=== PATIENT | female | born 1985 | race Two or more races ===

== ENCOUNTER 2020-05-02 07:00 | Inpatient (IN) | payer OTHER ==
[~2020-05-02] VITALS: Ht 144.8 cm; Wt 62.6 kg
--- NOTE | 2020-05-08 12:13 | NUR ---
[facility] translation services used to obtained medical history with project engineering director Thang ID #[id number].
[2020-05-09] VITALS (15 sets, daily range): BP systolic 105–137; BP diastolic 41–88
[2020-05-09] MEDS ORDERED: Vancomycin 1gm vial IVPB ONE (06:33)
[2020-05-09] MEDS ORDERED: Ropivacaine 5mg/ml Vial 30ml INJ ONE ×2 (06:34→06:35)
[2020-05-09] MEDS ORDERED: Thrombin 5000 units TOPIC ONE (06:34)
[2020-05-09] MEDS ORDERED: Gelfoam Size TOPIC ONE (06:34)
[2020-05-09] MEDS ORDERED: Bacitracin 50000 Units Vial ONE (06:35)
--- NOTE | 2020-05-09 06:42 | Anethesia Preoperative Eval ---
Anesthesia Pre-op PMH/ROS General Date of Evaluation: May 09, 2020 Time of Evaluation: 07:01 Anesthesiologist: Meaghan ASA Score: ASA 2 Mallampati Score Class I : Soft palate, uvula, fauces, pillars visible Class II: Soft palate, uvula, fauces visible Class III: Soft palate, base of uvula visible Class IV: Only hard plate visible Mallampati Classification: Class II Surgeon: Scotty Diagnosis: Back Pain Surgical Procedure: L5-S1 Microdiscectomy Family History: no anesthesia problems Allergies: Coded Allergies: Tuna (Verified Allergy, Intermediate, tongue gets swollen, 05/09/20) Medications: see eMAR Patient NPO?: Yes Past Medical History Other: obesity - BMI 32 Anesthesia Pre-op Phys. Exam Physician Exam Last Vital Signs Date Time Temp Pulse Resp B/P (MAP) Pulse Ox O2 Delivery O2 Flow Rate FiO2 05/09/20 06:08 97.4 72 18 128/79 (95) 99 Constitutional: NAD Neurologic: CN 2-12 intact Cardiovascular: RRR Respiratory: CTA Gastrointestinal: S/NT/ND Airway Exam Mallampati Score: Class II MO: limited ROM: full Teeth: intact Anesthesia Pre-op A/P Labs Urine Test Test 05/09/20 05:45 Urine HCG, Qualitative Negative (NEGATIVE) Risk Assessment & Plan Assessment: ASA 2 Plan: GA, SED, GlideScope Status Change Before Surgery: No Pre-Antibiotics Dru Grams Ancef IV Given Within 1 Hr of Incision: Yes Time Given: 07:21 Krishna Harding MD May 09, 2020 06:42
[2020-05-09] MEDS ORDERED: LORazepam Inj 2mg/ml 1ml IV PRN (06:45)
[2020-05-09] MEDS ORDERED: HYDROcodone/Acetamin 5/325 tab ORAL PRN ×2 (06:45→07:30)
[2020-05-09] MEDS ORDERED: HYDROcodone/Acetamin 7.5/325 tab ORAL PRN ×3 (06:45→07:30)
[2020-05-09] MEDS ORDERED: Ketorolac 30mg Inj IV PRN ×2 (06:45)
[2020-05-09] MEDS ORDERED: Labetalol 5mg/ml 20ml vial IV PRN (06:45)
[2020-05-09] MEDS ORDERED: Hydromorphone 0.5mg/0.5ml inj IVP PRN (06:45)
[2020-05-09] MEDS ORDERED: Atropine Sulfate 0.4mg/ml inj IVP PRN (06:45)
[2020-05-09] MEDS ORDERED: Meperidine 25mg/1ml Inj (FOR RIGORS ONLY) IV PRN (06:45)
[2020-05-09] MEDS ORDERED: LR 1000ml 1,000 ML IVLG SCH (06:45)
[2020-05-09] MEDS ORDERED: DiphenhydrAMINE 50mg/ml Inj IVP PRN (06:45)
[2020-05-09] MEDS ORDERED: Acetaminophen (Non formulary) 100 ML IV ONE (06:45)
[2020-05-09] MEDS ORDERED: Midazolam 2mg/2ml Inj IVP PRN (06:45)
[2020-05-09] MEDS ORDERED: fentaNYL 100 mcg/2 mL IV PRN (06:45)
[2020-05-09] MEDS ORDERED: oxyCODONE HCL/Acetaminophen 5/325mg ORAL PRN (06:45)
[2020-05-09] MEDS ORDERED: Metoclopramide 10mg/2ml Inj IVP PRN ×2 (06:45→07:30)
[2020-05-09] MEDS ORDERED: Lidocaine 1% MPF 10mg/ml 5ml ONE (06:54)
[2020-05-09] MEDS ORDERED: Lidocaine 1% Plain 30 ml INJ ONE (06:54)
[2020-05-09] MEDS ORDERED: Sodium Chloride 10ml vial INJ ONE (06:54)
[2020-05-09] MEDS ORDERED: ceFAZolin sod 2 GM in NS 55 ML IVPB ONE (07:00)
--- NOTE | 2020-05-09 07:17 | Pre-Procedure Note/Attestation ---
Pre-Procedure Note/Attestation Complete Prior to Procedure Planned Procedure: not applicable Procedure Narrative: Lumbar hemilaminotomy and foraminotomy of L5S1 with left sided microdiscectomy Indications for Procedure Pre-Operative Diagnosis: herniation L5S1 Attestation I attest that I discussed the nature of the procedure; its benefits; risks and complications; and alternatives (and the risks and benefits of such alternatives), prior to the procedure, with the patient (or the patient's legal claims representative). I attest that, if there was a reasonable possibility of needing a blood transfusion, the patient (or the patient's legal claims representative) was given the [facility] standardized written summary, pursuant to the Andrew Leyner Blood Safety Act ([place] Health and Safety Code # 1645, as amended). I attest that I re-evaluated the patient just prior to the surgery and that there has been no change in the patient's H&P, except as documented below: Manuel Fajardo MD May 09, 2020 07:17
--- NOTE | 2020-05-09 07:18 | Brief Operative Note ---
Immediate Post Operative Note Operative Note Chief Complaint: low back pain and radiculopathy Pre-op Diagnosis: herniation L5S1 Procedure: Lumbar hemilaminotomy and foraminotomy of L5S1 with left sided microdiscectomy Post-op Diagnosis: same as pre-op Findings: consistent w/pre-op dx studies Surgeon: Scotty Floor Associate: Magaly Anesthesiologist: Meaghan Anesthesia: general Specimen: none Complications: none Condition: stable Fluids: IVF Estimated Blood Loss: minimal Drains: none Implant(s) used?: No Manuel Fajardo MD May 09, 2020 07:18
[2020-05-09] MEDS ORDERED: HYDROmorphone 1mg/ml Carpuject IVP PRN (07:30)
[2020-05-09] MEDS ORDERED: Milk of Magnesia 30ml Ud ORAL PRN (07:30)
[2020-05-09] MEDS ORDERED: Morphine Sulfate 2mg/ml Inj(IV/IM USE ONLY) IV PRN (07:30)
[2020-05-09] MEDS ORDERED: Naloxone 0.4mg/ml Inj IVP PRN (07:30)
[2020-05-09] MEDS ORDERED: Chloraseptic Spray 20mL Bottle ORAL PRN (07:30)
[2020-05-09] MEDS ORDERED: Morphine Sulfate 4mg/ml Inj (IV USE ONLY) IV PRN ×2 (07:30)
--- NOTE | 2020-05-09 07:52 | Immediate Post-Op Evaluation ---
Immediate Post-Op Evalulation Immediate Post-Op Evalulation Procedure: L5-S1 Microdiscectomy Date of Evaluation: May 09, 2020 Time of Evaluation: 09:17 IV Fluids: 800 LR Blood Products: 0 Estimated Blood Loss: 30 Urinary Output: 0 Blood Pressure Systolic: 126 Blood Pressure Diastolic: 80 Pulse Rate: 73 Respiratory Rate: 16 O2 Sat by Pulse Oximetry: 100 Temperature (Fahrenheit): 97 Pain Score (1-10): 2 Nausea: No Vomiting: No Complications 0 Hydration Status: adequate Dru Grams Anef IV Given Within 1 Hr of Incision: Yes Time Given: 07:21 Krishna Harding MD May 09, 2020 07:52
--- NOTE | 2020-05-09 07:54 | 48 Hour Post Anesthesia Eval ---
Post Anesthesia Evaluation Procedure: L5-S1 Microdiscectomy Date of Evaluation: May 09, 2020 Time of Evaluation: 11:23 Blood Pressure Systolic: 124 0: 62 Pulse Rate: 73 Respiratory Rate: 18 Temperature (Fahrenheit): 98 O2 Sat by Pulse Oximetry: 100 Airway: patent Nausea: No Vomiting: No Pain Intensity: 2 Hydration Status: adequate Cardiopulmonary Status: Stable Mental Status/LOC: patient returned to baseline Follow-up Care/Observations: 0 Post-Anesthesia Complications: 0 Follow-up care needed: N/A Krishna Harding MD May 09, 2020 07:54
[2020-05-09] MEDS ORDERED: Neostigmine 1mg/ml 10ml Inj ONE (08:38)
[2020-05-09] MEDS ORDERED: Glycopyrrolate 0.2mg/ml 1ml Vial ONE (08:38)
[2020-05-09] MEDS ORDERED: Docusate 100mg cap ORAL SCH (09:00)
[2020-05-09] MEDS: Docusate Sod/Senna tab ORAL SCH ×2 (09:00→18:02)
--- NOTE | 2020-05-09 10:30 | NUR ---
NURSE NOTES: Pt came up to unit via hospital bed in stable condition and w/no personal belongings. Pt A&Ox4; VSS; on 2L NC; and c/o 5/10 pain but would not like pain medication at this time. IV site intact/asymptomatic and surgical dressing is C/D/I. Pt denies taking medication at home; will continue to monitor.
--- NOTE | 2020-05-09 10:52 | NUR ---
CASE MANAGEMENT:REVIEW 34 YR OLD FEMALE HERE FOR ELECTIVE SURGERY SI: LOW BACK PAIN AND RADICULOPATHY HERNIATION L5 S1 97.4 72 18 128/79 99% ON RA IS: TO SURGERY: LUMBAR HEMILAMINOTOMY,FORAMINOTOMY,MICRODISCECTOMY IV ANCEF Q8HRS IV DECADRON Q6HRS IVF+KCL@100/HR IV MORPHINE Q4HRS PRN PAIN : TO MED/SURG UNIT [facility]
--- NOTE | 2020-05-09 11:15 | NUR ---
NURSE NOTES: Helped pt ambulate to the bathroom to void; pt voided successfully and returned to bed w/o incident. Bed locked, in lowest position, and call light within reach. Will continue to monitor.
[2020-05-09] MEDS: NS w/KCl 20mEq 1000ml 1,000 ML IV SCH ×2 (11:55→23:34)
--- NOTE | 2020-05-09 16:30 | Operative Note - Dictated ---
DATE OF OPERATION: 05/09/2020 SURGEON: Manuel Fajardo MD, Orthopaedic Spine Surgeon. CHANNEL EXECUTIVE: LUNA Samson. ANESTHESIA: General endotracheal anesthesia. PREOPERATIVE DIAGNOSES: 1. Intractable back pain. 2. Intractable leg pain. 3. Worsening radiculopathy. 4. Weakness. 5. Herniated nucleus pulposus, L5-S1 herniation. 6. Neural foraminal stenosis, L5-S1. POSTOPERATIVE DIAGNOSES: 1. Intractable back pain. 2. Intractable leg pain. 3. Worsening radiculopathy. 4. Weakness. 5. Herniated nucleus pulposus, L5-S1 herniation. 6. Neural foraminal stenosis, L5-S1. PROCEDURES PERFORMED: 1. Left-sided L5-S1 microdiscectomy. 2. L5-S1 bilateral hemilaminotomy, foraminotomy, and medial facetectomy. 3. L5-S1 neural foraminotomy through a transpedicular intraforaminal approach. 4. Use of intraoperative microscope. 5. Supervision and interpretation of intraoperative fluoroscopy. 6. Supervision and interpretation of somatosensory-evoked potential and free running EMG monitoring. ESTIMATED BLOOD LOSS: Less than 100 mL. COMPLICATIONS: None. INDICATIONS FOR THE PROCEDURE: The patient presents for intractable back pain and radiculopathy. The patient tried and failed a prolonged course of conservative management, including but not limited to chiropractic therapy, physical therapy, nonsteroidal anti-inflammatory drugs, medication, ice packs as well as epidural injection. Despite these therapies, the patient still developed recalcitrant pain and elected for definitive management in the form of left-sided L5-S1 microdiscectomy; L5-S1 bilateral hemilaminotomy, foraminotomy, and medial facetectomy; and L5-S1 neural foraminotomy through a transpedicular intraforaminal approach. CONSENT: We had a long discussion with the patient regarding definitive surgical treatment options. The patient's MRI demonstrated herniated nucleus pulposus, L5-S1 herniation and neural foraminal stenosis at L5-S1, and as a result, I felt the patient would benefit from the discectomy as well as neural foraminotomy at this level. We had a long discussion with the patient regarding the risks, alternatives, and benefits of surgery. Our description of the risks included a discussion in person as well as a signed consent, which detailed all pertinent risks and the procedure itself. Briefly, our discussion included but was not limited to infection, bleeding, pseudarthrosis, spinal cord injury, neurovascular injury, dural tear, CSF leak, neuropathy, paralysis, permanent weakness/drop foot, paresthesias, blindness, palsy, and weakness. The patient understood there may be a need for revision surgery or additional procedures. Approach-related complications including dysphonia, dysphagia, blindness, permanent vocal cord and neural injury, hematoma, swallowing and breathing difficulty. Medical complications including liver, kidney, shock, and cardiopulmonary failure. Anesthesia complications including , swelling, damage to the musculature, larynx (voice injury or loss),esophagus (throat), trachea, blood vessels and muscles (muscular sprain) and lungs (pneumothorax) during this surgical procedure. Injury to deeper structures may be temporary or permanent. The patient understood these and elected to proceed. A written and verbal consent was given. We discussed the pros and cons of all the alternatives. We discussed the uncertainties associated with the decision. Afterwards, I assessed the patient's understanding and explored their preferences. All questions were answered and no guarantees were given. Medical clearance was obtained prior to surgery. INTRAOPERATIVE FINDINGS: At L5-S1, there was a very large disc herniation apparently with encroachment on the neural foramina on the left side. When probed, this led to a discrete tear in the posterior longitudinal ligament, which was approximately 10 degrees cephalad to caudad. This was probed with a Microsect 1-B curette, which led to discovery of fresh, clean edges along the tear, we made to believe this was more acute in nature. After this was probed, I was able to gently maneuver the remainder of the disc herniation from its confines using a 1 mm and 1.5 mm pituitaries. This allowed for complete dissection under microscope. The disc I should note was soft and spongy; it was not calcified, dried, dehydrated, or desiccated leading me to believe this is more traumatic in nature and not a degenerative process. DESCRIPTION OF PROCEDURE: Under the benefit of general endotracheal anesthesia and with the assistance of the entire operative team, the patient was moved from the rscammon bay onto the operative table in the prone position on a Robert frame. The head was secured and positioned appropriately. Bilateral arms were secured with Gel Pads and foam, and all bony prominences were padded. The bilateral lower extremity SCD and CARLITA hose were placed for DVT prophylaxis. A surgical timeout was called, which corroborated our planned procedure. Preoperative antibiotics were administered within 30 minutes of the incision for prophylaxis. Decadron was given for preoperative steroids. Using lateral radiography, the operative levels were delineated. An incision was marked based on our interpretation of lateral radiography and afterwards the body was prepped and draped in the usual sterile manner. The family was notified that we were ready to commence surgery and were called in the waiting room hourly for updates. An incision was based on our lateral fluoroscopic image to center the incision at the L5-S1 interspace. The wound was prepped and draped in the usual sterile fashion. Using a scalpel, a midline incision was taken down through the skin and subcutaneous tissues until the overlying hemilaminae of L5-S1 were visualized. Next, using meticulous hemostasis, hemilamotomies were dissected and retractors were placed. Using a [employer] dental, we confirmed placement at the L5-S1 interspace. We next turned our attention to our decompression. A standard hemilaminotomy, foraminotomy, and medial facetectomy was performed at each level in standard fashion using a Midas-Andrew type AM8 drill bit, straight and angled curettage, and [place] 4 rongeurs until the lateral thecal sac margin and traversing nerve root was visualized. All remainders of the ligamentum flavum and lateral bony margins were resected in total with angled curettage and [place] 4 rongeurs until the lateral thecal sac margin and traversing nerve root was visualized and decompressed. We next turned our attention toward our L5-S1 microdiscectomy on the left side. A [place] 4 was used to gently mobilize the thecal sac medially and this was held retracted with a bayonetted nerve root retractor. It was at this point that we noted a large broad-based disc protrusion with encroachment dorsally on the thecal sac and neural foraminal contents. A bayonet and nerve root retractor was then placed carefully to retract the thecal sac and a discectomy was performed using a combination of a long-handled 15 blade scalpel, downgoing and straight pituitaries, and downgoing curettage. Afterward, the disc space was irrigated twice with 20 mL of antibiotic-impregnated saline. All loose and free-floating disc fragments were carefully resected with a narrow pituitary. Having been satisfied with our decompression after our discectomy of all neural elements, we next turned our attention to our neural foraminoplasty/foraminotomy. This was performed through a transpedicular intraforaminal approach using an access probe followed by a neuro-check device, which confirmed ventral placement of our nerve root. Once we confirmed we were safe, we next turned our attention towards placement of our size 10 file under direct microscopic visualization and under lateral fluoroscopy. Using pre- and post-reciprocation imaging, we were able to visualize our direct decompression given the reciprocation allowed for re-creation of the neural foraminal arch at L5-S1. Afterward, hemostasis was obtained with 60 mL of antibiotic-impregnated saline followed by FloSeal and Gelfoam. After sponge and needle count were found to be correct, we next turned our attention to closure. Closure consisted of 1-0 Vicryl in standard interrupted fashion. Zosyn was placed deep to the fascia and superficial to the fascia for antibiotic prophylaxis. Skin closure was performed with 2-0 Vicryl in interrupted fashion followed by running Monocryl for the skin. Final dressings consisted of Dermabond for the superficial skin, Telfa, and Tegaderm. The patient tolerated the procedure well. The patient was extubated after the conclusion of surgery without incident. We discussed the findings of the surgery with the family upon completion of the case. At this point, the patient will be transferred to the spine floor for further observation. Manuel Fajardo M.D. DR: KVNG JOB#: [id number] CC:
[2020-05-09] MEDS: ceFAZolin sod 1 GM in D5W 55 ML IV SCH ×2 (16:55→23:33)
--- NOTE | 2020-05-09 17:13 | Diagnostic Imaging Report ---
INDICATION: Pain, intraoperative TECHNIQUE: Intraoperative imaging Fluoroscopy time: 2.6 seconds Total dose: 0.0, 2.8 mGym2 Total number of images: One COMPARISON: None FINDINGS: Single intraoperative image demonstrates a surgical tool projected posteriorly to what is presumably the L5 vertebral body IMPRESSION: Intraoperative imaging, as described
--- NOTE | 2020-05-09 20:15 | NUR ---
NURSE NOTES: Patient in bed, awake, alert and verbally responsive. Yi speaking, understands korean. Skin is warm and dry to touch. Abdomen is soft and non distended. No complaint of pain or discomfort noted at this time. Iv site noted, iv fluid is infusing as ordered. Bed in low and locked position. provided safe environment. Noted with lower back dressing, intact. Respiration is even and unlabored. Call light is at bedside. Will continue plan of care.
--- NOTE | 2020-05-09 20:21 | NUR ---
NURSE HAND-OFF: Important Events on Shift: Pt came up to unit from OR this afternoon; pt ambulating to bathroom to void; pt tolerable and pt refusing pain meds at this time. Endorsed that pt will D/C home tomorrow morning at 0900. Patient Status: Stable Diet: Regular Pending Orders: None Pending Results/Labs:None Pending MD notification:None Latest Vital Signs: Temperature 98.6 , Pulse 88 , B/P 122 /69 , Respiratory Rate 18 , O2 SAT 99 , Nasal Cannula, O2 Flow Rate 2.0 . Vital Sign Comment: Stable Latest Rivas Fall Score: 45 Fall Risk: High Risk Safety Measures: Call light , Bed Alarm , Side Rails Side Rails x1, Bed position . Fall Precautions: Report given to ZAC Verdugo.
--- NOTE | 2020-05-09 23:51 | NUR ---
NURSE NOTES: Given PRN tylenol for headache, will reasses. Call light is at bedside. Will continue plan of care.
[2020-05-10] VITALS: BP 113/66
[2020-05-10] MEDS ORDERED: NORCO 10-325 T1 EACH ORAL (00:47)
[2020-05-10] MEDS ORDERED: CARISOPRODOL350 MG ORAL (00:48)
[2020-05-10 04:00] VITALS: BP 108/61
--- NOTE | 2020-05-10 07:27 | NUR ---
NURSE HAND-OFF: Important Events on Shift:WNL Patient Status: WNL Diet: REG Pending Orders: Pending Results/Labs: Pending MD notification: Latest Vital Signs: Temperature 98.2 , Pulse 66 , B/P 108 /61 , Respiratory Rate 20 , O2 SAT 99 , Nasal Cannula, O2 Flow Rate 2.0 . Vital Sign Comment: WNL Latest Rivas Fall Score: 45 Fall Risk: High Risk Safety Measures: Call light Within Reach, Bed Alarm Zone 1, Side Rails Side Rails x2, Bed position . Fall Precautions: Report given to ZAC Chacon.
[2020-05-10] MEDS: NS w/KCl 20mEq 1000ml 1,000 ML IV SCH (07:30)
--- NOTE | 2020-05-10 07:49 | NUR ---
NURSE NOTES: Received report from ZAC Verdugo. Rounding done with outgoing nurse. Pt a/o x 4, having breakfast. Discussed discharge plan. No SOB noted. Denies any pain at this time. Bed in lowest position, call light within reach. Will continue to monitor.
[2020-05-10 08:00] VITALS: BP 114/67
[2020-05-10] MEDS: ceFAZolin sod 1 GM in D5W 55 ML IV SCH (08:08)
[2020-05-10] MEDS: Docusate Sod/Senna tab ORAL SCH (08:36)
[2020-05-10] MEDS ORDERED: NS Irrig 1000ml ONE (09:11)
[2020-05-10] MEDS ORDERED: Succinylcholine 20mg/ml 10ml vial ONE (09:11)
[2020-05-10] MEDS ORDERED: Sterile Water Irrig 1000ml IRRIG ONE (09:11)
[2020-05-10] MEDS ORDERED: LR 1000ml ONE (09:11)
--- NOTE | 2020-05-10 09:12 | NUR ---
NURSE NOTES: Discharge instruction was given to pt. Belongings checked with pt and pt signed. IV access was removed. Patient discharged accompanied by in stable condition.
--- NOTE | 2020-05-12 10:55 | Discharge Summary ---
Discharge Summary Hospital Course Date of Admission May 09, 2020 at 05:26 Date of Discharge May 10, 2020 at 09:12 Admitting Diagnosis Herniated nucleus pulposus, L5-S1 with radiculopathy Reason for Hospitalization: Elective surgery HPI Yasmin Suarez is a 34 year old female who was admitted on May 09, 2020 at 05:26 for herniated nucleus pulposus, L5-S1 with radiculopathy Patient was admitted for elective surgery Procedures s/p 05/07/[address] Fajardo 1. Left-sided L5-S1 microdiscectomy. 2. L5-S1 bilateral hemilaminotomy, foraminotomy, and medial facetectomy. 3. L5-S1 neural foraminotomy through a transpedicular intraforaminal approach. 4. Use of intraoperative microscope. 5. Supervision and interpretation of intraoperative fluoroscopy. 6. Supervision and interpretation of somatosensory-evoked potential and free running EMG monitoring. Hospital Course status post surgery course of recovery uneventful initially IV fluids s/p perioperative antibiotic and steroid neurovascular status closely monitored, remained stable incision clean , dry and intact pain management was addressed ; pain was controlled remained hemodynamically stable ambulated with PT fall precautions maintained; safe for ambulation DVT prophylaxis provided use of incentive spirometry was encouraged while in the bed tolerated diet , IV fluids discontinued antiemetics were on board as needed voided freely bowel regimen instituted patient was stable for discharge discharge instructions provided follow up with surgeon in the office as instructed FINAL DIAGNOSES: 1. Intractable back pain. 2. Intractable leg pain. 3. Worsening radiculopathy. 4. Weakness. 5. Herniated nucleus pulposus, L5-S1 herniation. 6. Neural foraminal stenosis, L5-S1. 7. Lumbar hemilaminotomy and foraminotomy of L5S1 with left sided microdiscectomy Discharge Medications Continued Medications: Carisoprodol* (Carisoprodol*) 350 Mg Tablet 350 MG ORAL BID for muscle pain, TAB Hydrocodone Bit/Acetaminophen 10-325* ([place] 10-325*) 1 Each Tablet 1 TAB ORAL EVERY 8 HOURS PRN for For Pain, #10 TAB 0 Refills PRN PAIN Discharge Condition Upon Discharge: stable Discharge Vital Signs Last Vital Signs Date Time Temp Pulse Resp B/P (MAP) Pulse Ox O2 Delivery O2 Flow Rate FiO2 05/10/20 09:00 Room Air 05/10/20 08:00 97.8 91 20 114/67 (83) 97 05/09/20 21:00 2.0 Discharge Disposition Patient was discharged home Discharge Instructions Discharge Instructions Special Instructions I have been assigned to complete a D/C Summary on this account. I was not involved in the patient management Beckie Rubio NP May 12, 2020 10:55
== END 2020-05-10 09:12 | disposition home or self-care (01) | DRG 520 ==
LOC: SDSOVERFLO 05-09 05:26 → 3E 05-09 10:15
PROC: 01NR0ZZ Release Sacral Nerve, Open Approach (ICD-10-PCS; principal; 2020-05-09 07:00)
PROC: 01NB0ZZ Release Lumbar Nerve, Open Approach (ICD-10-PCS; principal; 2020-05-09 07:00)
PROC: 0SB40ZZ Excision of Lumbosacral Disc, Open Approach (ICD-10-PCS; principal; 2020-05-09 07:00)
DX: M51.17 Intervertebral disc disorders with radiculopathy, lumbosacral region (principal); M48.07 Spinal stenosis, lumbosacral region; V49.9XXS Car occupant (driver) (passenger) injured in unspecified traffic accident, sequela
CPT/HCPCS: 36415; 72020; 76000; 81025; 86850; 86870; 86900; 86901; 87081; 94003; 94150; C9399; J2405; J2710; U0002